=== PATIENT | female | born 1940 | race Caucasian/White ===

== ENCOUNTER 2017-09-13 06:50 | Observation (INO) | payer OTHER ==
--- NOTE | 2017-09-12 15:33 | GHP ---
[f rep st] PREOP HISTORY AND PHYSICAL DATE OF ADMISSION: 09/13/2017 ADMISSION DIAGNOSIS: Left proximal ureteral calculus with history of urosepsis and obstruction. HISTORY OF PRESENT ILLNESS: This 77-year-old lady had been in the emergency room and I had visited h er in the ICU. She has had a percutaneous nephrostomy tube placed. At the present time, she is admi tted for dilation of the tract and removal of her stone. She also has a right renal mass that will n eed to be addressed at a later time. PAST MEDICAL HISTORY: Her past history is acute renal failure secondary to the obstruction and the u rosepsis, the renal mass and renal calculi. PAST SURGICAL HISTORY: Breast surgery. MEDICATION: List included probiotics. ALLERGIES: Compazine, Percocet. FAMILY HISTORY: Noncontributory. SOCIAL HISTORY: Nonsmoker, not , and moderate alcohol consumption. REVIEW OF SYSTEMS: Negative cardiac, GI, endocrine. PHYSICAL EXAMINATION: VITAL SIGNS: Stable. GENERAL: Wheelchair bound. HEAD/EARS/EYES/NOSE/THROAT: Normal. CHEST: Nonlabored breathing. ABDOMEN: Soft. EXTREMITIES: Lower extremities are normal. ASSESSMENT/PLAN: At the present time, she is admitted for the above procedure. Interventional Radio logy will dilate the tract, and then we will perform removal of the stone percutaneously. /[id number]/MODL
[2017-09-13] MEDS ORDERED: CLINDAMYCIN 900 MG/DEXTROSE 50 ML IV ONE (07:05)
[2017-09-13] MEDS ORDERED: LR 1,000 ML IV ONE (07:10)
[2017-09-13] MEDS ORDERED: IOPAMIDOL (ISOVUE-300) 100 ML BTL ONE (07:46)
[2017-09-13] MEDS ORDERED: MINERAL OIL 10 ML VIAL ONE (07:46)
--- NOTE | 2017-09-13 08:39 | PDHPUP ---
History & Physical Update H&P update statement: This history and physical update is based on an assessment of the patient which was completed after admission or registration (within 24 hours), but prior to the surgery/procedure. H&P update: H&P reviewed & patient examined, no change in patient's condition since H&P completed
--- NOTE | 2017-09-13 08:39 | PDANEPAE ---
ANE History of Present Illness 77 year old female for percutaneous nephro-lithotripsy. Patient is coming from inpatient rehab center. Patient in rehab due to debilitation following prolonged episode of urosepsis at OSH. Patient was in ICU at OSH prior to discharge to rehab facility. ANE Past Medical History - Cardiovascular History Hx Hypertension: No Hx Arrhythmias: No Hx Chest Pain: No Hx Coronary Artery / Peripheral Vascular Disease: No Hx CHF / Valvular Disease: No Hx Palpitations: No - Pulmonary History Hx COPD: No Hx Asthma/Reactive Airway Disease: No Hx Recent Upper Respiratory Infection: No Hx Oxygen in Use at Home: No Hx Sleep Apnea: No - Neurologic History Hx Cerebrovascular Accident: No Hx Seizures: No Hx Dementia: No - Endocrine History Hx Diabetes: No Hypothyroid: No Hyperthyroid: No Obesity: no - Renal History Hx Renal Disorders: Yes Renal History Comment: Renal stones - Liver History Hx Hepatic Disorders: No - Neurological & Psychiatric Hx Hx Neurological and Psychiatric Disorders: No - Cancer History Hx Cancer: No - Congenital Disorder History Hx Congenital Disorders: No - GI History Gastrointestinal History Comment: Irritable Bowel Syndrome w/ diarrhea - Chronic Pain History Chronic Pain: No ANE Review of Systems Review of systems is: negative Review of Systems: - Exercise capacity Exercise capacity: limited by disability ANE Patient History - Allergies Allergies/Adverse Reactions: acetaminophen [From Percocet] Allergy (Verified 09/13/17 07:05) levofloxacin [From Levaquin] Allergy (Verified 09/13/17 07:21) oxycodone [From Percocet] Allergy (Verified 09/13/17 07:05) prochlorperazine [From Compazine] Allergy (Verified 09/13/17 07:21) - Home Medications Home medications: home medication list seen and reviewed Home Medications: NK [No Known Home Meds] 09/13/17 [Last Taken Unknown] - NPO status NPO Status: no food or drink >8 hours NPO Since - Liquids (Date): 09/12/17 NPO Since - Liquids (Time): 23:50 NPO Since - Solids (Date): 09/12/17 NPO Since - Solids (Time): 18:00 - Anes Hx Anes Hx: no prior problems - Smoking Hx Smoking Status: Never smoked Marijuana use: No - Alcohol Use Alcohol Use: Rarely - Family Anes Hx Family Anes Hx: neg - N/A ANE Labs/Vital Signs - Vital Signs Vital Signs: reviewed preoperatively; see RN documention for details Blood Pressure: 170/77 Heart Rate: 68 Respiratory Rate: 16 O2 Sat (%): 96 ANE Physical Exam - Airway Neck exam: FROM Mallampati Score: Class 3 Mouth exam: dentures, small mouth opening - Pulmonary Pulmonary: no respiratory distress - Cardiovascular Cardiovascular: regular rate and rhythym - ASA Status ASA Status: III ANE Anesthesia Plan Anesthesia Plan: general endotracheal anesthesia Total IV Anesthesia: No
[2017-09-13] MEDS ORDERED: PROPOFOL 200 MG/20 ML VIAL ONE (08:49)
[2017-09-13] MEDS ORDERED: fentaNYL 100 MCG/2 ML INJ ONE ×2 (08:49→11:15)
[2017-09-13] MEDS ORDERED: ROCURONIUM 50 MG/5 ML VIAL ONE (08:53)
[2017-09-13] MEDS ORDERED: LIDOCAINE 2% 5 ML SDV ONE (08:53)
[2017-09-13] MEDS ORDERED: DEXAMETHASONE 4 MG/ML VIAL ONE (09:30)
[2017-09-13] MEDS ORDERED: PHENYLEPHRINE HCL 100 MCG/ML SYR ONE (09:30)
[2017-09-13] MEDS ORDERED: ONDANSETRON 4 MG/2 ML VIAL IVP PRN ×2 (09:47→10:34)
[2017-09-13] MEDS ORDERED: PHENYLEPHRINE HCL 100 MCG/ML SYR IVP PRN (09:47)
[2017-09-13] MEDS ORDERED: NALOXONE HCL 0.4 MG/ML INJ IVP PRN (09:47)
[2017-09-13] MEDS ORDERED: epHEDrine SULFATE 10 MG/ML SYR IVP PRN (09:47)
[2017-09-13] MEDS ORDERED: LR 500 ML IV PRN (09:47)
[2017-09-13] MEDS ORDERED: SUGAMMADEX SODIUM 200 MG/2 ML VIAL IVP ONE (09:52)
--- NOTE | 2017-09-13 10:12 | PDRADPN ---
Radiology Procedure Note Date of Procedure: 09/13/17 Radiologist: Alvaro Robb Anesthesiologist: Richard Anesthesia: GET(General Endotracheal) Pre-op Diagnosis: obstructive nephrolithiasis Post-op Diagnosis: same Indication: PCNL indicated Procedure: conversion of PCN to amplatz sheath for PCNL access Finding(s): 9mm UPJ obstructive calculus traversed with catheter and wire. Dual amplatz wire access to bladder. Tract was balloon dilated and 30F Amplatz sheath was advanced to renal pelvis. Inf/Abcess present in the surg proc area at time of surgery?: No EBL: Minimal Complications: none apparent
[2017-09-13] MEDS ORDERED: ONDANSETRON DISINTEGRATING 4 MG TAB PO PRN (10:34)
[2017-09-13] MEDS ORDERED: ACETAMINOPHEN 325 MG TAB PO PRN (10:34)
[2017-09-13] MEDS ORDERED: ZOLPIDEM TARTRATE 5 MG TAB PO PRN (10:34)
[2017-09-13] MEDS ORDERED: HYDROmorphONE/DILAUDID 2 MG TAB PO PRN (10:34)
--- NOTE | 2017-09-13 10:40 | POSTOPPROG ---
Post Op Note Date of Operation: 09/13/17 Surgeon: Jean Marquez Front Elevator Operator: ALFONSO (IR) Anesthesia: GET(General Endotracheal) Pre-op Diagnosis: left nephrolithiasis / ureterolithiasis Indication: stones Procedure: PCN, ureteroscopy Inf/Abcess present in the surg proc area at time of surgery?: No EBL: Minimal Drains: Nephrostomy Specimen(s): stones for analysis--dictated
[2017-09-13] MEDS ORDERED: D5W 1/2 NS 1,000 ML IV SCH (10:45)
--- NOTE | 2017-09-13 10:52 | GOP ---
[f rep st] OPERATIVE REPORT DATE OF OPERATION: 09/13/2017 SURGEON: Jean Marquez MD PREOPERATIVE DIAGNOSIS: 1. Hydronephrosis. 2. Ureterolithiasis. 3. Nephrolithiasis. POSTOPERATIVE DIAGNOSIS: PROCEDURE PERFORMED: percutaneous nephrostolithotomy, antegrade ureteroscopy, and extraction of uret eral and renal stones. FINDINGS: SPECIMENS: Stones will be sent for stone analysis. ESTIMATED BLOOD LOSS: Minimal. DESCRIPTION OF PROCEDURE: After undergoing general anesthesia, being prepped and draped in the taylor l sterile fashion, and an appropriate time-out, renal pelvis access was provided by Interventional Ra diology, Dr. Robb. I was then able to identify stones in the lower pole, mid pole calices, and the renal pelvis, which were extracted. The original ureteral stone was not visualized, so I used the ur eteroscope to go down to the ureterovesical junction and there were no stones identified. On imaging and endoscopically there were no residual stones. At that point, I requested that the patient have a nephrostomy ureteral stent placed. She will be admitted overnight to have a nephrostogram tomorrow to confirm drainage of the kidney. She will then be discharged tomorrow. She tolerated the procedu re well. /[id number]/MODL
[2017-09-13] MEDS: fentaNYL 100 MCG/2 ML INJ IVP PRN ×3 (11:19→11:46)
[2017-09-13] MEDS ORDERED: HYDROmorphONE/DILAUDID 2 MG/ML INJ ONE (12:08)
[2017-09-13] MEDS ORDERED: HYDROmorphONE/DILAUDID 1 MG/ML INJ IVP PRN (12:08)
--- NOTE | 2017-09-13 17:49 | POSTANESTH ---
Post Anesthetic Evaluation Cardiovascular Status: Normal, Stable, Similar to Pre-Op Cond Respiratory Status: Normal, Stable, Similar to Pre-op Cond. Level of Consciousness/Mental Status: Can Participate in Eval, Alert and Oriented Pain Control: Adequate, Prn Tx Ordered Nausea/Vomiting Control: Adequate, Prn Tx Ordered Complications Possibly Related to Anesthesia: None Noted
[2017-09-14 05:46] VITALS: TEMP 98.4
--- NOTE | 2017-09-14 07:56 | SOAPPROG ---
MARILYN Progress Note Assessment/Plan: Assessment: Hydronephrosis Acute rxed with neph and PCN Renal mass Acute right and will be addressed after recovery from left stone rx Ureterolithiasis Acute resolved, antegrade neph today and dc home after Plan: DC home 09/14/17 07:55 Subjective: ready for DC Objective: Vital Signs Temp Pulse Resp BP Pulse Ox 36.9 C 68 14 130/66 H 100 09/14/17 05:45 09/14/17 05:45 09/14/17 05:45 09/14/17 05:45 09/14/17 05:45 09/13/17 09/14/17 09/15/17 05:59 05:59 05:59 Intake Total 2961 Output Total 1450 Balance 1511 Physical Exam - Physical Exam General Appearance: alert Respiratory: No respiratory distress Cardiac/Chest: regular rate, rhythm Back: No CVA tenderness Extremities: non-tender Neuro/Psych: alert, oriented x 3 ICD10 Worksheet Patient Problems: Problems Problem Status Onset Hydronephrosis Acute Renal mass Acute Ureterolithiasis Acute
[2017-09-14 08:59] VITALS: PULSE 69
[2017-09-14] MEDS ORDERED: IOPAMIDOL (ISOVUE-300) 150 ML BTL ONE (09:21)
[2017-09-14 12:48] VITALS: BP 117/57; RESP 16; O2SAT 96
--- NOTE | 2017-09-14 13:46 | WOCRNPDOC ---
WOCRN Advanced Assessment Note - Skin Integrity Problem, Advanced Assess Coccyx Pressure Injury Dressing Type: Mepilex Border Dressing Description: Intact Exudate Amount: Scant Exudate Color: Reddish/Yellow Exudate Characteristic(s): Serosanguinous Integumentary Issue Intervention: Visualized Under Dressing [place] Wound Swelling: None Wound Bed Color: Red Wound Bed Constitution: Red/[place] - Non Granular Tissue Wound Edges: Well Defined Site Measurement - Head-to-Toe Length X Width X Depth (cm): Right: 0.6cmx0.3cmx0.1cm. Left: 0.6cmx0.4cmx0.1cm Pressure Injury Stage: Stage 2 Pressure Injury Present on Admit: Yes (physician notified) Skin Integrity Problem Comment: Two, discrete partial-thickness pressure injuries on patient's lower sacrum/upper coccyx. Patient says these wounds were potentially caused by her IBS and frequent stools, however the location is too high for these injuries to be caused by friction from wiping are are directly over a bony prominence. No periwound erythema or swelling. Nursing applied a Mepilex border foam, and this is fine to continue. Reiterated to patient to off- load area as much as possible.
--- NOTE | 2017-09-14 16:31 | PDIAF ---
- Diagnosis Diagnosis: stone Code Status: Full Code - Medication Management Discharge Medications: Medications to Continue on Transfer Herbals/Supplements -Info Only 1 ea PO DAILY 09/13/17 [Last Taken Unknown] Acetaminophen [Tylenol 325mg (*)] 650 mg PO Q4HRS PRN tab 09/14/17 [Last Taken Unknown] Discharge Medications: Refer to the Discharge Home Medication list for PRN reason. PICC Care - Routine: N/A - Orders Services needed: Physical Therapy Diet Recommendation: no restrictions on diet Diet Texture: Regular Texture Diet Downs: Not applicable - Follow Up Care Current Providers and Referrals: NONE *PRIMARY CARE P,. [Primary Care Provider] - Jean Marquez MD [Medical Doctor] - (one week for stent removal)
--- NOTE | 2017-09-14 17:06 | ASMTLACE ---
LACE Length of stay for Answers: 1 day current admission Acuity / Level of Answers: No Care: Did the patient have an inpatient admission? Comorbidities - select Answers: Other Notes: Hx acute renal failure all that apply # of Emergency department Answers: 0 visits in the last 6 months Score: 2 Date Signed: 09/14/2017 05:05 PM Electronically Signed By:Nancy Dominguez LCSW
== END 2017-09-14 20:30 | disposition home or self-care (01) ==
LOC: F1N 06:50 → INTOOBSV 06:50 → F1N 12:35
PROVIDERS: ADMIT Specialist; ATTEND Specialist
PROC: 0TC13ZZ Extirpation of Matter from Left Kidney, Percutaneous Approach (ICD-10-PCS; principal; 2017-09-13 09:00)
PROC: 0T773DZ Dilation of Left Ureter with Intraluminal Device, Percutaneous Approach (ICD-10-PCS; principal; 2017-09-13 09:00)
PROC: BT1F1ZZ Fluoroscopy of Left Kidney, Ureter and Bladder using Low Osmolar Contrast (ICD-10-PCS; principal; 2017-09-13 09:00)
PROC: 0TJ94ZZ Inspection of Ureter, Percutaneous Endoscopic Approach (ICD-10-PCS; principal; 2017-09-13 09:00)
PROC: 0TC43ZZ Extirpation of Matter from Left Kidney Pelvis, Percutaneous Approach (ICD-10-PCS; principal; 2017-09-13 09:00)
DX: N13.2 Hydronephrosis with renal and ureteral calculous obstruction (principal)
CPT/HCPCS: 50080; 52332; 74425; 74485; 75984; 88300; C1725; C1729; C1769; C1894; G0378; J1100; J1170; J1644; J2370; J2704; J3010; Q9967; 82365-90

== ENCOUNTER → 2018-03-25 | Outpatient (CLI) | payer OTHER ==
[~2018-03-25] MED LIST: FUROSEMIDE 40 MG/4 ML VIAL ONE
== END ==
LOC: FIMAGING 12:49
PROVIDERS: ATTEND Physician Assistant Medical
DX: N28.89 Other specified disorders of kidney and ureter (principal)
CPT/HCPCS: 78708; A9562; J1940

== ENCOUNTER 2018-04-25 09:18 | Inpatient (IN) | payer OTHER ==
--- NOTE | 2018-04-24 16:19 | GHP ---
CHIEF COMPLAINT: Right renal mass. HISTORY OF PRESENT ILLNESS: This is a 77-year-old lady who has had radiologic evaluation for kidney stones, and it was noted she had a left-sided stone, a right-sided stone, and left-sided hydronephros is with sepsis when she originally presented. She was treated with percutaneous nephrostolithotomy. She presently is healed from her left stones but she is to undergo a right robotic-assisted nephrect magdalena for right renal mass and a nonfunctioning right kidney. Indications, complications, options disc ussed. She had a DMSA scan that showed 2% function of the right kidney and the enhancing lesion. PAST MEDICAL HISTORY: Hydronephrosis, nephrolithiasis, ureterolithiasis and E coli sepsis, breast lucas rgery, and PCNL, has been to surgery. MEDICATIONS: IBS medicine and probiotics. ALLERGIES: Compazine, Levaquin, Percocet. FAMILY HISTORY: Noncontributory. PHYSICAL EXAMINATION: VITAL SIGNS: Stable. CHEST: Clear. HEART: Regular rate and rhythm. ABDOM EN: Normal. No organomegaly, rebound, or guarding. EXTREMITIES: Lower extremities are normal. At the present time, she is admitted for a robotic-assisted right radical nephrectomy, partial ureter ectomy. /[id number]/MODL
--- NOTE | 2018-04-25 08:50 | PDANEPAE ---
ANE History of Present Illness 77 y/o female here for right nephrectomy, robot, for a right renal mass. ANE Past Medical History - Cardiovascular History Hx Hypertension: No Hx Arrhythmias: No Hx Chest Pain: No Hx Coronary Artery / Peripheral Vascular Disease: No Hx CHF / Valvular Disease: No Hx Palpitations: No - Pulmonary History Hx COPD: No Hx Asthma/Reactive Airway Disease: No Hx Recent Upper Respiratory Infection: No Hx Oxygen in Use at Home: No Hx Sleep Apnea: No - Neurologic History Hx Cerebrovascular Accident: No Hx Seizures: No Hx Dementia: No - Endocrine History Hx Diabetes: No - Renal History Hx Renal Disorders: Yes Renal History Comment: RENAL FAILURE/SEPSIS 08/2017. Renal stones. NON FUNCTIONING KIDNEY - Liver History Hx Hepatic Disorders: No - Neurological & Psychiatric Hx Hx Neurological and Psychiatric Disorders: No - Cancer History Hx Cancer: No - Congenital Disorder History Hx Congenital Disorders: No - GI History Hx Gastrointestinal Disorders: Yes Gastrointestinal History Comment: Irritable Bowel Syndrome w/ diarrhea - Other Health History Other Health History: DENTURES. [facility] [place] USES AIDS. GLASSES - Chronic Pain History Chronic Pain: No - Surgical History Prior Surgeries: LT NEPHROLITHOTOMY 09/13/17. NABIL CATARACTS. LT BREAST LUMPECTOMIES. TONSILLECTOMY ANE Review of Systems Review of Systems: - Exercise capacity Exercise capacity: >=4 METS METS (RN): 4 METS ANE Patient History - Allergies Allergies/Adverse Reactions: levofloxacin [From Levaquin] Allergy (Verified 09/13/17 13:19) Vomiting oxycodone [From Percocet] Allergy (Verified 09/13/17 12:56) Vomiting prochlorperazine [From Compazine] Allergy (Verified 04/11/18 09:43) Anaphylaxis - Home Medications Home medications: home medication list seen and reviewed Home Medications: RX: Herbals/Supplements -Info Only 1 ea PO DAILY 09/13/17 [Last Taken 04/24/18] - NPO status NPO Status: no food or drink >8 hours - Anes Hx Anes Hx: no prior problems - Smoking Hx Smoking Status: Never smoked ANE Labs/Vital Signs - Vital Signs Height: 157.48 cm Weight: 45.359 kg ANE Physical Exam - Airway Mallampati Score: Class 2 Mouth exam: dentures - Pulmonary Pulmonary: clear to auscultation - Cardiovascular Cardiovascular: regular rate and rhythym, no murmur, rub, or gallop - ASA Status ASA Status: II
[2018-04-25] MEDS ORDERED: ceFAZolin 2 GM/DEXTROSE 100 ML IV ONE (09:36)
[2018-04-25] MEDS ORDERED: LR 1,000 ML IV ONE (09:41)
[2018-04-25] MEDS ORDERED: LIDOCAINE 1% 2 ML INJ ID PRN (09:41)
[2018-04-25] MEDS ORDERED: fentaNYL 100 MCG/2 ML INJ ONE ×2 (10:18→12:45)
[2018-04-25] MEDS ORDERED: PROPOFOL 200 MG/20 ML VIAL ONE (10:23)
[2018-04-25] MEDS ORDERED: ROCURONIUM 50 MG/5 ML VIAL ONE ×2 (10:37→11:37)
[2018-04-25] MEDS ORDERED: PETROLAT,WHT/MIN OIL/SOD CHL 3.5 GM OPHT.OINT ONE (10:57)
[2018-04-25] MEDS ORDERED: SURGIFLO MATRIX KIT WITH THROMBIN 8 ML TP ONE (11:13)
[2018-04-25] MEDS ORDERED: BUPIVACAINE 0.5% 30 ML SDV ONE ×2 (11:14→12:06)
[2018-04-25] MEDS ORDERED: THROMBIN (BOVINE) 20,000 UNIT SPRAY TP ONE (11:14)
[2018-04-25] MEDS ORDERED: DEXAMETHASONE 4 MG/ML VIAL ONE (11:16)
[2018-04-25] MEDS ORDERED: GLYCOPYRROLATE 0.2 MG/1 ML VIAL ONE ×2 (12:03)
[2018-04-25] MEDS ORDERED: ONDANSETRON 4 MG/2 ML VIAL ONE ×2 (12:03→13:34)
[2018-04-25] MEDS ORDERED: NEOSTIGMINE METHYLSULFATE 5 MG/5 ML SYR ONE (12:04)
[2018-04-25] MEDS ORDERED: LR 500 ML IV PRN (12:06)
[2018-04-25] MEDS ORDERED: NALOXONE HCL 0.4 MG/ML INJ IVP PRN ×2 (12:06→12:26)
[2018-04-25] MEDS ORDERED: ONDANSETRON 4 MG/2 ML VIAL IVP PRN (12:06)
[2018-04-25] MEDS ORDERED: METOCLOPRAMIDE 10 MG/2 ML VIAL IVP PRN ×2 (12:06→12:26)
[2018-04-25] MEDS ORDERED: LABETALOL HCL 5 MG/ML 20 ML MDV IVP PRN (12:06)
[2018-04-25] MEDS ORDERED: MEPERIDINE 25 MG/0.5 ML AMP IVP PRN (12:06)
[2018-04-25] MEDS ORDERED: ALBUTEROL 3 ML DEYVIAL IH PRN (12:06)
--- NOTE | 2018-04-25 12:06 | POSTANESTH ---
Post Anesthetic Evaluation Respiratory Status: Normal, Stable Level of Consciousness/Mental Status: Can Participate in Eval Pain Control: Adequate, Prn Tx Ordered Nausea/Vomiting Control: Adequate, Prn Tx Ordered Complications Possibly Related to Anesthesia: None Noted
[2018-04-25] MEDS ORDERED: SUGAMMADEX SODIUM 200 MG/2 ML VIAL IVP ONE (12:14)
[2018-04-25] MEDS ORDERED: HYDROmorphONE/DILAUDID 6 MG/30 ML PCA IV PRN (12:26)
--- NOTE | 2018-04-25 12:26 | POSTOPPROG ---
Post Op Note Date of Operation: 04/25/18 (dictated) Surgeon: Jean Marquez Pull Through Hooker: Jes Anesthesiologist: Lydia Quinn Anesthesia: GET(General Endotracheal) Pre-op Diagnosis: rt renal mass, no fx hydronephrotic rt kidney Procedure: RA rt radical neph/ureter Inf/Abcess present in the surg proc area at time of surgery?: No EBL: Minimal Specimen(s): sent
[2018-04-25] MEDS ORDERED: ZOLPIDEM TARTRATE 5 MG TAB PO PRN (12:27)
[2018-04-25] MEDS ORDERED: HYDROmorphONE/DILAUDID 2 MG/ML INJ ONE (12:45)
[2018-04-25] MEDS: fentaNYL 100 MCG/2 ML INJ IVP PRN ×2 (12:45→12:58)
[2018-04-25] MEDS: HYDROmorphONE/DILAUDID 2 MG/ML INJ IVP PRN ×4 (12:51→14:00)
--- NOTE | 2018-04-25 12:57 | GOP ---
DATE OF OPERATION: 04/25/2018 SURGEON: Jean Marquez MD STORM WINDOW INSTALLER: Sylvie Andre CFA ANESTHESIA: General. ANESTHESIOLOGIST: Lydia Quinn MD PREOPERATIVE DIAGNOSIS: Right hydronephrosis with nonfunctioning kidney and a right solid mass. POSTOPERATIVE DIAGNOSIS: Right hydronephrosis with nonfunctioning kidney and a right solid mass. PROCEDURE PERFORMED: Robotic-assisted right radical nephrectomy and partial ureterectomy. FINDINGS: SPECIMENS: Sent to Pathology. ESTIMATED BLOOD LOSS: Less than 50 mL. DESCRIPTION OF PROCEDURE: After undergoing general anesthesia and being prepped and draped in normal sterile fashion, appropriate marking of the patient, identification, comparison with the x-ray image s that we had, and appropriate time-out, a Veress needle was placed in the right upper quadrant below the ribs, and insufflation to 15 mmHg was made with CO2. Then, at that point the camera port was pl aced supraumbilically, addictions counselor assistant port 15 mm was placed infraumbilically, and 2 robotic arm ports were placed in the midclavicular line on the right side. At that point, I was able to mobilize the colon using the scissors and the fenestrated bipolar. She needed a 5 mm port placed for liver retraction as it came over the kidney so that the liver was retracted out of the way. Then, I was actually able to incise the peritoneum, identified the ureter and the gonadal vessel. The ureter was reflected la terally, the gonadal vessel went into the vena cava and kept it intact, and then dissected up to wher e I could identify the renal vein and artery. Dissected above, below, anterior and posterior to it, and then used a vascular stapler to go across that, and then went across the superior peritoneal lon chments and perinephric fat at the superior part of the kidney, and hemostasis was noted. At that po int, the vascular stapler went across the ureter as it crossed over the iliac vessels, and then the r emaining part of the specimen was removed with electrocautery and it was placed in a bag, and then I lowered the pressure to zero, and there was no welling or bleeding identified in any of the operative site. There was no staining in the abdomen. The gallbladder was intact. Liver was not traumatized . I did place Surgicel at the bed of the adrenal and superior part of the kidney dissection and elec farooq not to place a drain, and then was able to undocked the robot. I closed the camera port with a f ascial suture device 0 Vicryl, and then extended the addictions counselor assistant port to the point I could remove the b ag and the specimen intact, and then closed the linea alba with a running 0 Vicryl, and skin was appr oximated with 4-0 Monocryl and Dermabond placed, and Marcaine was used for local anesthesia. She andie erated the procedure well. COMPLICATIONS: None. /[id number]/MODL
[2018-04-25] MEDS ORDERED: hydrALAZINE 20 MG/ML VIAL ONE (13:54)
[2018-04-25] MEDS ORDERED: hydrALAZINE 20 MG/ML VIAL IVP ONE (14:00)
--- NOTE | 2018-04-25 14:47 | PDMN ---
Medical Necessity Medical necessity: CPT 26583 L nephrectomy partial ureterectomy, IP only
[2018-04-26 05:33] LABS: PLATELET COUNT 207 10^3/uL (150-400)
--- NOTE | 2018-04-26 08:42 | SOAPPROG ---
SOAP Progress Note Assessment/Plan: Assessment: Hydronephrosis Acute POD#1 right nephrectomy, cont care, DC when appropriate Renal mass Acute POD#1 path pending Ureterolithiasis Acute Plan: cont care 04/26/18 08:41 Subjective: doing well Objective: Vital Signs Temp Pulse Resp BP Pulse Ox 36.6 C 66 12 140/64 H 99 04/26/18 07:56 04/26/18 07:56 04/26/18 07:56 04/26/18 07:56 04/26/18 07:56 Laboratory Results 04/26/18 04:50 04/26/18 04:50 04/25/18 04/26/18 04/27/18 05:59 05:59 05:59 Intake Total 800 1682 Output Total 250 375 Balance 550 1307 Physical Exam - Physical Exam General Appearance: alert Neck: supple Respiratory: No respiratory distress Cardiac/Chest: regular rate, rhythm Abdomen: soft Back: No CVA tenderness Skin: warm/dry Extremities: No calf tenderness Neuro/Psych: alert, oriented x 3 ICD10 Worksheet Patient Problems: Problems Problem Status Onset Hydronephrosis Acute Renal mass Acute Ureterolithiasis Acute
[2018-04-26] MEDS: D5W 1/2 NS W/ 20 KCl/L 1,000 ML IV SCH ×2 (11:10→19:53)
--- NOTE | 2018-04-26 12:42 | ASMTCMCOM ---
CM Note CM Note Notes: Pt is a 77 y/o female who presented to the hospital with rt hydronephrosis with non-functioning kidney and a right solid mass. As a result pt had a right radical nephrectomy and partial ureterectomy. Pt is retired. No CM needs are anticipated at this time. CM will follow for changes. D/C Plan: Anticipate independent. Date Signed: 04/26/2018 12:41 PM Electronically Signed By:Emmanuelle Cat
--- NOTE | 2018-04-27 10:28 | SOAPPROG ---
SOAP Progress Note Assessment/Plan: Assessment: Hydronephrosis Acute POD#2 right nephrectomy, cont care, DC when appropriate Renal mass Acute POD#2 path pending Ureterolithiasis Acute Plan: cont care, dc tomorrow 04/27/18 10:27 Subjective: some nausea Objective: Vital Signs Temp Pulse Resp BP Pulse Ox 37.6 C 76 18 149/75 H 92 04/27/18 08:16 04/27/18 08:16 04/27/18 08:16 04/27/18 08:16 04/27/18 08:16 Laboratory Results 04/26/18 04:50 04/26/18 04:50 04/26/18 04/27/18 04/28/18 05:59 05:59 05:59 Intake Total 800 4577 Output Total 250 375 Balance 550 4202 Physical Exam - Physical Exam General Appearance: alert Neck: supple Respiratory: No respiratory distress Cardiac/Chest: regular rate, rhythm Abdomen: soft Back: No CVA tenderness Skin: warm/dry Extremities: No calf tenderness, No Michael's sign Neuro/Psych: alert, oriented x 3 ICD10 Worksheet Patient Problems: Problems Problem Status Onset Hydronephrosis Acute Renal mass Acute Ureterolithiasis Acute
[2018-04-27] MEDS ORDERED: SENNOSIDES/DOCUSATE SODIUM TAB PO PRN (10:29)
[2018-04-27] MEDS: HYDROCODONE/APAP 5/325 TAB PO PRN ×3 (12:32→21:45)
[2018-04-27] MEDS: D5W 1/2 NS W/ 20 KCl/L 1,000 ML IV SCH (15:46)
[2018-04-28] MEDS: HYDROCODONE/APAP 5/325 TAB PO PRN ×3 (05:20→09:50)
[2018-04-28 07:36] VITALS: BP 160/77
--- NOTE | 2018-04-28 11:12 | SOAPPROG ---
SOAP Progress Note Assessment/Plan: Assessment: doing well pod 2 with normal BS, passing gas and some BM. exam unremarkable Plan: DC home 04/28/18 11:12 Objective: Vital Signs Temp Pulse Resp BP Pulse Ox 36.8 C 68 14 160/77 H 99 04/28/18 07:34 04/28/18 07:34 04/28/18 07:34 04/28/18 07:34 04/28/18 07:34 Laboratory Results 04/26/18 04:50 04/26/18 04:50 04/27/18 04/28/18 04/29/18 05:59 05:59 05:59 Intake Total 4577 2180 Output Total 375 4310 600 Balance 4208 -1570 -600 ICD10 Worksheet Patient Problems: Problems Problem Status Onset Hydronephrosis Acute Renal mass Acute Ureterolithiasis Acute
== END 2018-04-28 13:08 | disposition home or self-care (01) | DRG 657 ==
LOC: F3E 09:18 → F1N 09:39
PROVIDERS: ADMIT Specialist; ATTEND Specialist
DX: C64.1 Malignant neoplasm of right kidney, except renal pelvis (principal); N13.30 Unspecified hydronephrosis; K58.9 Irritable bowel syndrome, unspecified
CPT/HCPCS: 97116-GP; 97161-GP; 97165-GO; G8978-GP-CI; G8979-GP-CH; G8987-GO-CI; G8988-GO-CH; G8989-GO-CI; J0360; J0690; J1100; J1170; J2405; J2704; J2710; J2765; J3010

== ENCOUNTER 2018-12-12 11:30 | Day surgery (SDC) | payer OTHER | END 2018-12-12 17:30 | disposition home or self-care (01) | LOC: F1N 11:30 → FSGY 11:30 ==